=== PATIENT | female | born 1990 | race Caucasian/White ===

== ENCOUNTER 2016-03-25 14:08 | Emergency (ER) | payer MEDICAID ==
[~2016-03-25] VITALS: Ht 152.4 cm; Wt 78.5 kg
[~2016-03-25 14:08] MED LIST: HYDR-1421
[2016-03-25 15:30] VITALS: BP 115/87
== END 2016-03-25 17:35 | disposition home or self-care (01) ==
LOC: ER 14:16
DX: S83.91XA Sprain of unspecified site of right knee, initial encounter (principal); Z88.8 Allergy status to other drugs, medicaments and biological substances; X58.XXXA Exposure to other specified factors, initial encounter; Y93.89 Activity, other specified; Y99.9 Unspecified external cause status; Y92.89 Other specified places as the place of occurrence of the external cause
CPT/HCPCS: 73562

== ENCOUNTER 2021-10-23 10:15 | Emergency (ER) | payer MEDICAID ==
[~2021-10-23] VITALS: Ht 152.4 cm; Wt 76.3 kg
[2021-10-23 12:45] VITALS: BP 110/68
[2021-10-23] MEDS ORDERED: cefTRIAXone SOD 1,000 MG VL IM ONE (12:45)
[2021-10-23] MEDS ORDERED: AZIT500T66 PO (13:03)
[2021-10-23] MEDS ORDERED: LIDO2SOL23 MT (13:03)
== END 2021-10-23 13:08 | disposition home or self-care (01) ==
LOC: ER 10:44
DX: J03.90 Acute tonsillitis, unspecified (principal); Z90.49 Acquired absence of other specified parts of digestive tract
CPT/HCPCS: 96372; 99283; J0696

== ENCOUNTER 2024-07-28 11:05 | Inpatient (IN) | payer MEDICAID ==
[~2024-07-28] VITALS: Ht 157.5 cm; Wt 80.0 kg
[~2024-07-28 11:05] MED LIST changes: +AZIT500T66 PO; +LIDO2SOL26 MT
--- NOTE | 2024-07-28 11:12 | ED.PDOC ---
History of Present Illness HPI Comments 33-year-old female who comes in with chief complaint of abdominal pain and body pain since Monday. The patient was at [facility] with her family and then the symptoms began. There has been some fever and chills with a temperature of a 100.1 upon arrival. The patient is experiencing the vomiting as well as diarrhea since Monday. 911 was called and the patient was transported to our facility. There has been no dysuria. The patient was given Zofran 4 mg p.o. EN route. Time Seen by MD: 11:06 Primary Care Provider: LAWRENCE Reviewed Notes: Nurses Notes, Dean Of Girls Notes, Medications, Allergies (Allergies to iodine) Allergies: Coded Allergies: Iodine (Verified Allergy, Mild, 08/09/10) Home Meds Active Scripts Lidocaine HCl (Mouth-Throat) (Lidocaine HCl Viscous) 2 % Rhonda, 2 % MT TID, #100 ML Prov:BEAU WESLEY 10/23/21 Azithromycin (Azithromycin) 500 Mg Tab, 500 MG PO DAILY for 5 Days, #5 TAB Prov:BEAU WESLEY 10/23/21 Reported Medications Hydrocodone-Acetaminophen (Vicodin) 1 Tab Tab, PRN 03/19/12 Information Source: Patient, Emergency Med Personnel Mode of Arrival: EMS Severity: Moderate Timing: Days Duration: Since onset Prehospital treatment: Other (Zofran 4 mg ODT) Location: Generalized abdominal pain Associated signs and symptoms Fever, chills, diarrhea, vomiting Past Medical History PAST MEDICAL HISTORY: Asthma, High Lipids Surgical History: Appendectomy, Cholecystectomy, 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 History Family History Family History: No family hx of Lung leandro, Family hx of heart leandro Social History Smoker: Non-Smoker Alcohol: Occasionally Drugs: Denies Drug Use Lives In: Home Constitutional: reports: chills, fever, weakness; denies: diaphoresis, fatigue, malaise, sweats, others EENTM: denies: blurred vision, double vision, ear bleeding, ear discharge, ear drainage, ear pain, ear ringing, eye pain, eye redness, hearing loss, mouth pain, mouth swelling, nasal discharge, nose bleeding, nose congestion, nose pain, photophobia, tearing, throat pain, throat swelling, voice changes, others Respiratory: denies: cough, hemoptysis, orthopnea, SOB at rest, shortness of breath, SOB with excertion, stridor, wheezing, others Cardiovascular: denies: chest pain, dizzy spells, diaphoresis, Dyspnea on exertion, edema, irregular heart beat, left arm pain, lightheadedness, palpitations, PND, syncope, others Gastrointestinal: reports: abdominal pain, diarrhea, nausea, vomiting; denies: abdomen distended, blood streaked bowels, constipated, dysphagia, difficulty swallowing, hematemesis, melena, poor appetite, poor fluid intake, rectal bleeding, rectal pain, others Genitourinary: denies: abnormal vagina bleeding, burning, dyspareunia, dysuria, flank pain, frequency, hematuria, incontinence, pain, , vagina discharge, urgency, others Neurological: denies: dizziness, fainting, headache, left sided numbness, left sided weakness, numbness, paresthesia, pre-existing deficit, right sided numbness, right sided weakness, seizure, speech problems, tingling, tremors, weakness, others Musculoskeletal: denies: back pain, gout, joint pain, joint swelling, muscle pain, muscle stiffness, neck pain, others Integumetry: denies: bruises, change in color, change in hair/nails, dryness, laceration, lesions, lumps, rash, wounds, others Allergic/Immunocompromised: denies: Difficulty Healing, Frequent Infections, Hives, Itching, others Hematologic/Lymphatic: denies: anemia, blood clots, easy bleeding, easy bruis ing, swollen glands, others Endocrine: denies: excessive hunger, excessive sweating, excessive thirst, exc essive urination, flushing, intolerance to cold, intolerance to heat, unexplained weight gain, unexplained weight loss, others Psychiatric: denies: anxiety, bipolar disorder, depression, hopeless, panic disorder, schizophrenia, sleepless, suicidal, others Physical Exam General Appearance: Moderate Distress HEENT: Normal ENT Inspection, Pharynx Normal, TMs Normal Neck: Full Range of Motion, Non-Tender, Normal, Normal Inspection Respiratory: Chest Non-Tender, Lungs Clear, No Accessory Muscle Use, No Respiratory Distress, Normal Breath Sounds Cardiovascular: No Edema, No JVD, No Murmur, No Gallop, Normal Peripheral Puls es, Regular Rate/Rhythm Breast Exam: Deferred Gastrointestinal: Diffuse, No Organomegaly, No Pulsatile Mass, Normal Bowel Sounds, Soft, Tenderness Genitalia: Deferred Pelvic: Deferred Rectal: Deferred Extremities: No calf tenderness, Normal capillary refill, Normal inspection, Normal range of motion, Non-tender, No pedal edema Musculoskeletal : Apperance: Normal Neurologic: Alert, director of community center II-XII nml as Tested, No Motor Deficits, Normal Affect, Normal Mood, No Sensory Deficits Cerebellar Function: Normal Reflexes: Normal Skin: Dry, Normal Color, Warm Lymphatic: No Adenopathy Was a procedure done? Was a procedure done?: No Differential Dx Considerations may include: Generalized weakness, gastritis, diverticulitis, dehydration X-Ray, Labs, Meds, VS Vital Signs Date Time Temp Pulse Resp B/P (MAP) Pulse Ox O2 Delivery O2 Flow Rate FiO2 07/28/24 12:46 115 16 117/73 07/28/24 12:41 99.9 07/28/24 12:03 115 16 117/73 07/28/24 11:50 102.3 07/28/24 11:33 121 18 135/70 07/28/24 11:15 100.1 113 18 127/83 (98) 100 100.1 07/28/24 11:15 102.3 121 16 135/70 (91) 100 102.3 Lab Test 07/28/24 11:22 Range/Units White Blood Count 5.4 4.4-10.8 10^3/uL Red Blood Count 5.17 4.0-5.20 10^6/uL Hemoglobin 14.3 12.2-16.2 g/dL Hematocrit 42.2 36.0-46.0 % Mean Corpuscular Volume 81.5 80.0-100.0 fL Mean Corpuscular Hemoglobin 27.7 L 28.0-32.0 pg Mean Corpuscular Hemoglobin Concent 34.0 32.0-36.0 g/dL Red Cell Distribution Width 14.2 11.8-14.3 % Platelet Count 259 140-450 10^3/uL Mean Platelet Volume 8.0 6.9-10.8 fL Neutrophils (%) (Auto) 85.4 H 37.0-80.0 % Lymphocytes (%) (Auto) 2.6 L 10.0-50.0 % Monocytes (%) (Auto) 11.5 0.0-12.0 % Eosinophils (%) (Auto) 0.4 0.0-7.0 % Basophils (%) (Auto) 0.1 0.0-2.0 % Neutrophils # (Auto) 4.6 1.6-8.6 10 ^3/uL Lymphocytes # (Auto) 0.1 L 0.4-5.4 10 ^3/uL Monocytes # (Auto) 0.6 0-1.3 10 ^3/uL Eosinophils # (Auto) 0 0-0.8 10 ^3/uL Basophils # (Auto) 0 0-0.2 10 ^3/uL Nucleated Red Blood Cells 0.0 % Sodium Level 136 136-145 mmol/L Potassium Level 3.4 L 3.5-5.1 mmol/L Chloride Level 103 98-107 mmol/L Carbon Dioxide Level 20 20-31 mmol/L Anion Gap 13 5-15 Blood Urea Nitrogen < 5 L 9-23 mg/dL Creatinine 0.78 0.550-1.02 mg/dL Glomerular Filtration Rate Calc 102 >90 mL/min BUN/Creatinine Ratio 6.4 L 10.0-20.0 Serum Glucose 121 H 74-106 mg/dL Calcium Level 10.3 8.7-10.4 mg/dL Total Bilirubin 0.5 0.2-1.0 mg/dL Aspartate Amino Transferase (AST) < 8 L 13-40 U/L Alanine Aminotransferase (ALT) 13 7-40 U/L Alkaline Phosphatase 77 46-116 U/L Total Protein 7.8 5.7-8.2 g/dL Albumin 4.9 H 3.2-4.8 g/dL Lipase 41 12-53 U/L Beta HCG, Quantitative 0.5 L 1.5-4.2 mIU/mL Current Medications Medications (Trade) Dose Ordered Sig/Sapphire Route Start Time Stop Time Status Last Admin Sodium Chloride 1,000 ml @ 1,000 mls/hr Q1H ONCE IVB 07/28/24 11:15 07/28/24 12:14 DC 07/28/24 11:32 Morphine Sulfate 4 mg ONCE ONCE IV 07/28/24 11:15 07/28/24 11:16 DC 07/28/24 11:33 Prochlorperazine Edisylate (Compazine Inj) 10 mg ONCE ONCE IV 07/28/24 11:15 07/28/24 11:16 DC 07/28/24 11:33 Pantoprazole Sodium (Protonix) 40 mg ONCE ONCE IV 07/28/24 11:15 07/28/24 11:16 DC 07/28/24 11:33 Acetaminophen (Tylenol Tablet) 650 mg ONCE ONCE PO 07/28/24 11:45 07/28/24 11:46 DC 07/28/24 11:50 Morphine Sulfate 4 mg ONCE ONCE IV 07/28/24 12:45 07/28/24 12:46 DC 07/28/24 12:46 The patient's CBC is within normal limits The chemistry panel is within normal limits. The patient was given morphine 4 mg IV push for the pain The patient was given Protonix 40 mg as well as Compazine 10 mg IV push The patient was bolused with normal saline The patient is still having increased amount of symptoms so we are going to admit the patient to the hospitalist We did repeat a dose of morphine The beta quantitative hCG is negative The patient is being admitted with a diagnosis of intractable abdominal pain and vomiting Images Reviewed?: Images reviewed and evaluated by me Time of 1ST Reevaluation: 11:12 Reevaluation 1ST: Unchanged Patient Education/Counseling: Diagnosis, Treatment, Prognosis Family Education/Counseling: No Family Present Departure 1 Departure Time of Disposition: 14:26 Impression: Primary Impression: Intractable abdominal pain Additional Impression: Vomiting Qualified Codes: R11.14 - Bilious vomiting Disposition: 09 ADMITTED INPATIENT Admit to: Med Surg Condition: Fair Critical Care Note Critical Care Time?: No Stability Stability form required: Yes Unstable for transfer: ED Physician Assesment (Clinical assesment) Heart Score Heart Score: Heart Score Response (Comments) Value History N/A 0 EKG N/A 0 Age N/A 0 Risk Factors N/A 0 Troponin N/A 0 Total 0 TOÑA MUELLER MD July 28, 2024 11:12
[2024-07-28] MEDS: SODIUM CHLORIDE 0.9% 1,000 ML IVB ONE (11:32)
[2024-07-28] MEDS: MORPHINE SULFATE 4 MG/ML SYR/VIAL IV ONE ×2 (11:33→12:46)
[2024-07-28] MEDS: PANTOPRAZOLE 40 MG/10 ML VIAL INJ IV ONE (11:33)
[2024-07-28] MEDS: PROCHLORPERAZINE EDISYLATE 5 MG/ML 2ML VIAL IV ONE (11:33)
[2024-07-28 11:38] LABS: Basophils # (auto) 0 10 ^3/uL (0-0.2); Basophils % (auto) 0.1 % (0.0-2.0); Eosinophils # (auto) 0 10 ^3/uL (0-0.8); Eosinophils % (auto) 0.4 % (0.0-7.0); Hematocrit 42.2 % (36.0-46.0); Hemoglobin 14.3 g/dL (12.2-16.2); Lymphocytes # (auto) 0.1 10 ^3/uL (0.4-5.4); Lymphocytes % (auto) 2.6 % (10.0-50.0); Mean Corpuscular Hemoglobin 27.7 pg (28.0-32.0); Mean Corpuscular Volume 81.5 fL (80.0-100.0); Monocytes # (auto) 0.6 10 ^3/uL (0-1.3); Monocytes % (auto) 11.5 % (0.0-12.0); Neutrophils # (auto) 4.6 10 ^3/uL (1.6-8.6); Neutrophils % (auto) 85.4 % (37.0-80.0); Platelet Count (auto) 259 10^3/uL (140-450); Red Blood Cells 5.17 10^6/uL (4.0-5.20); Red Cell Distribution Width 14.2 % (11.8-14.3); White Blood Cell 5.4 10^3/uL (4.4-10.8)
[2024-07-28] MEDS: ACETAMINOPHEN 325 MG TAB PO ONE (11:50)
[2024-07-28 11:53] LABS: Alanine Aminotransferase 13 U/L (7-40); Alkaline Phosphatase 77 U/L (46-116); Anion Gap 13 (5-15); Bilirubin, Total 0.5 mg/dL (0.2-1.0); Calcium 10.3 mg/dL (8.7-10.4); Carbon Dioxide 20 mmol/L (20-31); Chloride 103 mmol/L (98-107); Total Protein 7.8 g/dL (5.7-8.2)
[2024-07-28 11:56] LABS: Albumin 4.9 g/dL (3.2-4.8); Aspartate Aminotransferase < 8 U/L (13-40); BUN/Creatinine Ratio 6.4 (10.0-20.0); Blood Urea Nitrogen < 5 mg/dL (9-23); Glucose 121 mg/dL (74-106); Potassium 3.4 mmol/L (3.5-5.1); Sodium 136 mmol/L (136-145)
[2024-07-28 12:08] LABS: Lipase 41 U/L (12-53)
--- NOTE | 2024-07-28 14:14 | DVH ---
CT CT AB PEL WO CON-NO ORAL OR IV INDICATION: pain EXAM DATE: 07/28/2024 01:41 PM COMPARISON: None RADIATION DOSE: CTDIvol: 8.34 mGy, DLP: 480.53 mGy*cm PROCEDURE: Helical CT images were obtained of the abdomen and pelvis without IV contrast Sagittal and coronal reconstructions are provided. ORAL CONTRAST: None. ADDITIONAL IMAGES / REFORMATS: None All C T scans at this medical facility are performed using dose modulation techniques as appropriate to a p erformed exam including the following: Automated exposure control was utilized; adjustment of the MA and/or KV according to patient size; and use of iterative reconstruction technique. FINDINGS: LUNG BASE: Normal. LIVER: Normal. GALLBLADDER AND BILIARY TREE: Shirlene clips. No intra- or extrahepatic biliary ductal dilation. PANCREAS: Normal. SPLEEN: Normal. BOWEL: Normal. Appendix not visualized. ADRENALS: Normal. KIDNEYS AND URETER: Normal. BLADDER: Normal. REPRODUCTIVE ORGANS: An IUD and tampon is visualized. LYMPH NODES:No lymphadenopathy. PERITONEUM: No ascites or free air. No other fluid collection. VESSELS: Normal. RETROPERITONEUM: Normal. ABDOMINAL WALL: Normal. BONES: Normal. IMPRESSION: No acute intraabdominal abnormality. Appendix not visualized. An IUD and tampon is visualized.
[2024-07-28] MEDS ORDERED: NITROGLYCERIN 0.4 MG SL TAB SL PRN (15:15)
[2024-07-28] MEDS ORDERED: HYDROcodone-ACET 5/325MG TAB PO PRN (15:15)
--- NOTE | 2024-07-28 15:20 | DVHHP2 ---
History of Present Illness History of Present Illness 33-year-old female with a history of asthma presents to emergency room for abdominal pain with associated nausea and vomiting and associated fevers. Patient is also reporting diarrhea patient reports being at [employer]. Review of Systems Constitutional: Yes: Fever, Chills Eyes: No: Pain, Vision change, Conjunctivae inflammation, Eyelid inflammation, Other, Redness Respiratory: No: Cough, Dry, Shortness of breath, SOB with excertion, Wheezing, Hemoptysis, Pleuritic Pain, Sputum, Wheezing, Other Cardiovascular: No: Chest Pain, Palpitations, Orthopnea, Paroxysmal Noc. Dyspnea, Edema, Lt Headedness, Other Gastrointestinal: Nausea, Vomiting Genitourinary: No Dysuria, No Frequency, No Incontinence, No Hematuria, No Retention, No Other Allergies: Coded Allergies: Iodine (Verified Allergy, Mild, 08/09/10) Medications Current Medications Medications Dose Ordered Sig/Sapphire Route Start Time Stop Time Status Last Admin Dose Admin Acetaminophen/ Hydrocodone Bitart 1 tab Q4HP PRN PO 07/28/24 15:15 UNV Enoxaparin Sodium 30 mg DAILY SC 07/29/24 10:00 UNV Acetaminophen 650 mg Q6HP PRN PO 07/28/24 15:15 UNV Nitroglycerin 0.4 mg Q5MINP PRN SL 07/28/24 15:15 UNV Ceftriaxone Sodium 50 ml @ 100 mls/hr DAILY@09 IV 07/29/24 09:00 UNV Metronidazole 100 ml @ 100 mls/hr Q8HR IV 07/28/24 22:00 UNV Sodium Chloride 1,000 ml @ 100 mls/hr Q10H IV 07/28/24 15:15 UNV Exam Vital Signs Vital Signs Date Time Temp Pulse Resp B/P (MAP) Pulse Ox O2 Delivery O2 Flow Rate FiO2 07/28/24 12:46 115 16 117/73 07/28/24 12:41 99.9 07/28/24 11:15 100 General Appearance: Alert, Oriented X3, Cooperative HEENT: Atraumatic Respiratory: Clear to auscultation, Normal air movement Cardiovascular: Regular rate, Normal S1, Normal S2, No murmurs Abdominal: Normal bowel sounds, Soft, No tenderness, No hepatospenomegaly Extremities: No clubbing Labs/Xrays Labs Test 07/28/24 11:22 Range/Units White Blood Count 5.4 4.4-10.8 10^3/uL Red Blood Count 5.17 4.0-5.20 10^6/uL Hemoglobin 14.3 12.2-16.2 g/dL Hematocrit 42.2 36.0-46.0 % Mean Corpuscular Volume 81.5 80.0-100.0 fL Mean Corpuscular Hemoglobin 27.7 L 28.0-32.0 pg Mean Corpuscular Hemoglobin Concent 34.0 32.0-36.0 g/dL Red Cell Distribution Width 14.2 11.8-14.3 % Platelet Count 259 140-450 10^3/uL Mean Platelet Volume 8.0 6.9-10.8 fL Neutrophils (%) (Auto) 85.4 H 37.0-80.0 % Lymphocytes (%) (Auto) 2.6 L 10.0-50.0 % Monocytes (%) (Auto) 11.5 0.0-12.0 % Eosinophils (%) (Auto) 0.4 0.0-7.0 % Basophils (%) (Auto) 0.1 0.0-2.0 % Neutrophils # (Auto) 4.6 1.6-8.6 10 ^3/uL Lymphocytes # (Auto) 0.1 L 0.4-5.4 10 ^3/uL Monocytes # (Auto) 0.6 0-1.3 10 ^3/uL Eosinophils # (Auto) 0 0-0.8 10 ^3/uL Basophils # (Auto) 0 0-0.2 10 ^3/uL Nucleated Red Blood Cells 0.0 % Sodium Level 136 136-145 mmol/L Potassium Level 3.4 L 3.5-5.1 mmol/L Chloride Level 103 98-107 mmol/L Carbon Dioxide Level 20 20-31 mmol/L Anion Gap 13 5-15 Blood Urea Nitrogen < 5 L 9-23 mg/dL Creatinine 0.78 0.550-1.02 mg/dL Glomerular Filtration Rate Calc 102 >90 mL/min BUN/Creatinine Ratio 6.4 L 10.0-20.0 Serum Glucose 121 H 74-106 mg/dL Calcium Level 10.3 8.7-10.4 mg/dL Total Bilirubin 0.5 0.2-1.0 mg/dL Aspartate Amino Transferase (AST) < 8 L 13-40 U/L Alanine Aminotransferase (ALT) 13 7-40 U/L Alkaline Phosphatase 77 46-116 U/L Total Protein 7.8 5.7-8.2 g/dL Albumin 4.9 H 3.2-4.8 g/dL Lipase 41 12-53 U/L Beta HCG, Quantitative 0.5 L 1.5-4.2 mIU/mL Assessment/Plan Assessment/Plan 1. sepsis from influenza A IV abx, blood cultures, IVF 2. chronic pain syndrome continue with [place] PRN 3. morbid obesity monitor 4. hypokalemia 5. intractable nausea vomiting 6. hyperlipemia Plan discussed with: Patient My Orders Orders - LENA BELL Procedure Category Date Status Time Admit ADMIT 07/28/24 Transmitted 15:11 Allergies AKIN 07/28/24 In Process 15:11 Hydrocodone-Acet PHA 07/28/24 Logged 5/325mg Tab ([place] 15:15 Condition: Fair AKIN 07/28/24 In Process 15:11 Enoxaparin Sodium PHA 07/29/24 Logged (Lovenox) 10:00 Acetaminophen Tablet PHA 07/28/24 Logged (Tylenol Tablet) 15:15 Clear Liq Diet DIET 07/28/24 Transmitted Dinner Nitroglycerin PHA 07/28/24 Logged Sublingual (Ntrostat 15:15 Stat Ekg For Chest AKIN 07/28/24 In Process Pain 15:11 Notify Md Of Changes AKIN 07/28/24 In Process From Base 15:11 Nut Feeder For [facility] 07/28/24 In Process 24 Hours 15:11 Emergency Dysrhythmia AKIN 07/28/24 In Process Protocol 15:11 Rhythm Strips Once AKIN 07/28/24 In Process Every Shift 15:11 Oxygen By Nasal RT 07/28/24 Transmitted Cannula 15:11 Potassium Chloride PHA 07/28/24 Logged (Potassium Chloride). 15:15 Blood Culture ERNESTINA 07/28/24 Logged 15:14 Lactic Acid W/ Reflex LAB 07/28/24 Logged Order 15:14 Ceftriaxone 1gm/50ml PHA 07/28/24 Logged D5w (Rocephin) 15:15 Ceftriaxone 1gm/50ml PHA 07/29/24 Logged D5w (Rocephin) 09:00 Metronidazole PHA 07/28/24 Logged 500mg/100ml (Flagyl 22:00 Metronidazole PHA 07/28/24 Logged 500mg/100ml (Flagyl 15:15 Sodium Chloride 0.9% PHA 07/28/24 Logged 15:15 Urine Bacterial ERNESTINA 07/28/24 Logged Culture 15:15 Communication Order ORDERS 07/28/24 Transmitted 15:15 Covid19 Antigen Awa LAB 07/28/24 Logged Rapid Influenza A&B LAB 07/28/24 Logged 15:16 Pregabalin Capsule PHA 07/28/24 Verified (Lyrica Capsule) 22:00 Date of Service: July 28, 2024 Billing Provider: JONE MCCAULEY MD Common Visit Codes: [id number] INP/OBS CARE (MOD) LENA BELL HOME SUPERVISOR July 28, 2024 15:20
[2024-07-28 15:35] VITALS: RESP 18; O2SAT 98
[2024-07-28] MEDS: metroNIDAZOLE 500MG/100ML 100 ML IV ONE (15:39)
[2024-07-28] MEDS: cefTRIAXone 1GM/50ML D5W 50 ML IV ONE (15:39)
[2024-07-28 16:08] LABS: COVID19 ANTIGEN SOFIA FIA NEGATIVE (NEGATIVE)
[2024-07-28 16:09] LABS: Rapid Influenza B Negative (Negative)
[2024-07-28 16:10] LABS: Rapid Influenza A Positive (Negative)
[2024-07-28 16:19] LABS: Urine Amorphous Crystal FEW /hpf (None Seen); Urine Bacteria FEW /hpf (None Seen); Urine Blood Negative /uL (Negative); Urine Clarity Turbid (Clear); Urine Color Yellow (Yellow); Urine Mucus FEW (None Seen); Urine Protein, UAD 1+ (Negative); Urine Specific Gravity 1.029 (1.001-1.035); Urine Squamous Epithelial Cell FEW /hpf (<5); Urine Urobilinogen Normal (Negative); Urine WBC 3 /HPF (0-5); Urine pH 5.5 (5.0-9.0)
[2024-07-28 16:49] LABS: Amphetamine Screen, Urine Neg (NEGATIVE); Barbiturate Scree,Urine Neg (NEGATIVE); Benzodiazephine Screen, Urine Neg (NEGATIVE); Cannabinoid Screen, Urine Neg (NEGATIVE); Cocaine Screen, Urine Neg (NEGATIVE); Opiate Scree,Urine Pos (NEGATIVE); Phencyclidine Screen, Urine Neg (NEGATIVE)
[2024-07-28] MEDS: SODIUM CHLORIDE 0.9% 1,000 ML IV SCH (18:00)
[2024-07-28] MEDS: POTASSIUM CHLORIDE 20 MEQ, LIDOCAINE 1% (LOCAL ANESTH.) 2 ML in SODIUM CHL 0.9% 100 ML IV ONE (18:25)
[2024-07-28 19:25] VITALS: RESP 18; O2SAT 98
[2024-07-28] MEDS: ONDANSETRON HCL 4 MG/2 ML VIAL IV PRN (21:23)
[2024-07-28] MEDS: HYDROcodone-ACET 10/325MG TAB PO PRN (21:23)
[2024-07-28] MEDS: ACETAMINOPHEN 325 MG TAB PO PRN (21:24)
[2024-07-28] MEDS: ATORVASTATIN 20 MG TAB PO SCH (21:49)
[2024-07-28] MEDS: OSELTAMIVIR 75 MG CAP PO SCH (21:49)
[2024-07-28] MEDS: PREGABALIN 25 MG CAP PO SCH (21:49)
[2024-07-28] MEDS ORDERED: metroNIDAZOLE 500MG/100ML 100 ML IV SCH (22:00)
[2024-07-29] MEDS: cefTRIAXone 1GM/50ML D5W 50 ML IV SCH (09:15)
[2024-07-29] MEDS: ENOXAPARIN SOD 40 MG/0.4 ML SYRINGE SC SCH (11:28)
[2024-07-29] MEDS: AZITHROMYCIN 500MG/ 250ML 250 ML IV SCH (11:39)
--- NOTE | 2024-07-29 14:03 | DVHPN2 ---
Progress Note - Dictate Date Seen: July 29, 2024 Medical Necessity Reason Pt with a Central, PICC or Fol: No vital signs Vital Sign Date Time Temp Pulse Resp B/P (MAP) Pulse Ox O2 Delivery O2 Flow Rate FiO2 07/29/24 13:11 97.8 77 22 109/78 (88) 98 97.8 07/28/24 19:25 Room Air* 0 21 Total Intake and Output 07/28/24 07/28/24 07/29/24 15:00 23:00 07:00 Intake Total 1000 ml Balance 1000 ml medications Current Medications Medications Dose Ordered Sig/Sapphire Route Start Time Stop Time Status Last Admin Dose Admin Acetaminophen/ Hydrocodone Bitart 1 tab Q4HP PRN PO 07/28/24 15:15 UNV Enoxaparin Sodium 40 mg DAILY SC 07/29/24 10:00 07/29/24 11:28 40 MG Acetaminophen 650 mg Q6HP PRN PO 07/28/24 15:15 07/29/24 09:28 650 MG Nitroglycerin 0.4 mg Q5MINP PRN SL 07/28/24 15:15 Ceftriaxone Sodium 50 ml @ 100 mls/hr DAILY@09 IV 07/29/24 09:00 07/29/24 09:15 100 MLS/HR Metronidazole 100 ml @ 100 mls/hr Q8HR IV 07/28/24 22:00 Cancel Sodium Chloride 1,000 ml @ 100 mls/hr Q10H IV 07/28/24 15:15 07/29/24 11:15 100 MLS/HR Pregabalin 100 mg BID PO 07/28/24 22:00 07/29/24 11:28 100 MG Acetaminophen/ Hydrocodone Bitart 1 tab Q4HP PRN PO 07/28/24 15:30 07/28/24 21:23 1 TAB Oseltamivir Phosphate 75 mg BID PO 07/28/24 22:00 08/02/24 21:59 07/29/24 11:28 75 MG Azithromycin 250 ml @ 125 mls/hr DAILY IV 07/29/24 10:00 07/29/24 11:39 125 MLS/HR Ondansetron HCl 4 mg Q4HPRN PRN IV 07/28/24 17:00 07/29/24 11:28 4 MG Atorvastatin Calcium 20 mg HS PO 07/28/24 22:00 07/28/24 21:49 20 MG objective General Appearance: alert, no distress HEENT: EOMI, PERRLA, normal external inspect of ears, no icterus, no nasal drainage Neck: no carotid bruit, no jugular venous distention (JVD), no lymphadenopathy Chest: normal thorax Respiratory: clear to auscultation, normal air movement Cardiovascular: regular rate and rhythm, no diastolic murmur, no jugular venous distention (JVD), no rub, no systolic murmur Abdominal: soft, no hepatomegaly, no mass, no splenomegaly, no tenderness Genitourinary: grossly normal external Musculoskeletal: no joint tenderness, no swelling Extremities: normal pulses, no calf tenderness, no clubbing, no cyanosis, no edema Skin: no bruising, no jaundice, no rash Neurological: alert, No focal deficit laboratory and microbiology Laboratory Tests 07/28/24 11:22 Test 07/28/24 11:22 Range/Units Serum Glucose 121 H 74-106 mg/dL Problem List 1. Sepsis from influenza A IV abx, blood cultures, IVF 2. Chronic pain syndrome Monitor, continue with [place] PRN 3. Morbid obesity Monitor 4. hypokalemia Monitor, daily labs 5. Intractable nausea vomiting Monitor 6. Hyperlipemia Monitor, daily labs Assessment/Plan Subjective: Patient is awake and alert. Objective: Patient is still having fever and joint pain. She states she still does not feel well and feels dehydrated. Patient also admitted for sepsis. Plan: Continue Tamiflu for influenza A. Continue IV fluids. Monitor vitals. Continue supportive measures. Plan discussed with: Patient, Other ESVIN CASTILLO NP July 29, 2024 14:03
[2024-07-29 14:22] LABS: Basophils # (auto) 0 10 ^3/uL (0-0.2); Basophils % (auto) 0.4 % (0.0-2.0); Eosinophils # (auto) 0 10 ^3/uL (0-0.8); Hemoglobin 12.5 g/dL (12.2-16.2); Lymphocytes # (auto) 0.4 10 ^3/uL (0.4-5.4); Lymphocytes % (auto) 14.5 % (10.0-50.0); Mean Corpuscular Hemoglobin 27.7 pg (28.0-32.0); Mean Corpuscular Hgb Conc. 33.8 g/dL (32.0-36.0); Mean Corpuscular Volume 81.7 fL (80.0-100.0); Monocytes # (auto) 0.4 10 ^3/uL (0-1.3); Monocytes % (auto) 14.3 % (0.0-12.0); Neutrophils # (auto) 1.9 10 ^3/uL (1.6-8.6); Neutrophils % (auto) 70.8 % (37.0-80.0); Nucleated Red Blood Cells % 0.1 %; Platelet Count (auto) 188 10^3/uL (140-450); Red Blood Cells 4.52 10^6/uL (4.0-5.20); Red Cell Distribution Width 14.5 % (11.8-14.3); White Blood Cell 2.7 10^3/uL (4.4-10.8)
[2024-07-29 14:34] LABS: Sodium 140 mmol/L (136-145)
[2024-07-29 14:35] LABS: Anion Gap 8 (5-15); Calcium 9.5 mg/dL (8.7-10.4); Carbon Dioxide 23 mmol/L (20-31); Chloride 109 mmol/L (98-107)
[2024-07-29 14:40] LABS: BUN/Creatinine Ratio 7.6 (10.0-20.0); Blood Urea Nitrogen < 5 mg/dL (9-23); Glucose 106 mg/dL (74-106)
[2024-07-29 19:45] VITALS: RESP 18; O2SAT 98
[2024-07-29 20:00] VITALS: TEMP 97.8
[2024-07-30 09:10] VITALS: PULSE 74; RESP 15; O2SAT 97
[2024-07-30] MEDS ORDERED: ZOFR4T PO (12:22)
[2024-07-30] MEDS ORDERED: TAMIFLU PO (12:22)
--- NOTE | 2024-07-30 12:24 | DVHDS2 ---
Discharge Summary Date of Admission July 28, 2024 at 15:11 Date of Discharge: July 30, 2024 Labs/Diagnostic Data: Laboratory Results Test 07/29/24 14:14 07/28/24 15:33 07/28/24 15:31 07/28/24 15:29 White Blood Count 2.7 10^3/uL (4.4-10.8) Red Blood Count 4.52 10^6/uL (4.0-5.20) Hemoglobin 12.5 g/dL (12.2-16.2) Hematocrit 37.0 % (36.0-46.0) Mean Corpuscular Volume 81.7 fL (80.0-100.0) Mean Corpuscular Hemoglobin 27.7 pg (28.0-32.0) Mean Corpuscular Hemoglobin Concent 33.8 g/dL (32.0-36.0) Red Cell Distribution Width 14.5 % (11.8-14.3) Platelet Count 188 10^3/uL (140-450) Mean Platelet Volume 7.8 fL (6.9-10.8) Neutrophils (%) (Auto) 70.8 % (37.0-80.0) Lymphocytes (%) (Auto) 14.5 % (10.0-50.0) Monocytes (%) (Auto) 14.3 % (0.0-12.0) Eosinophils (%) (Auto) 0.0 % (0.0-7.0) Basophils (%) (Auto) 0.4 % (0.0-2.0) Neutrophils # (Auto) 1.9 10 ^3/uL (1.6-8.6) Lymphocytes # (Auto) 0.4 10 ^3/uL (0.4-5.4) Monocytes # (Auto) 0.4 10 ^3/uL (0-1.3) Eosinophils # (Auto) 0 10 ^3/uL (0-0.8) Basophils # (Auto) 0 10 ^3/uL (0-0.2) Nucleated Red Blood Cells 0.1 % Sodium Level 140 mmol/L (136-145) Potassium Level 4.0 mmol/L (3.5-5.1) Chloride Level 109 mmol/L (98-107) Carbon Dioxide Level 23 mmol/L (20-31) Anion Gap 8 (5-15) Blood Urea Nitrogen < 5 mg/dL (9-23) Creatinine 0.66 mg/dL (0.550-1.02) Glomerular Filtration Rate Calc 117 mL/min (>90) BUN/Creatinine Ratio 7.6 (10.0-20.0) Serum Glucose 106 mg/dL (74-106) Calcium Level 9.5 mg/dL (8.7-10.4) Urine Color Yellow (Yellow) Urine Clarity Turbid (Clear) Urine pH 5.5 (5.0-9.0) Urine Specific [place] 1.029 (1.001-1.035) Urine Protein 1+ (Negative) Urine Ketones 1+ (Negative) Urine Blood Negative /uL (Negative) Urine Nitrite Negative (Negative) Urine Bilirubin Negative (Negative) Urine Urobilinogen Normal mg/dL (Negative) Urine Leukocyte Esterase Negative /uL (Negative) Urine RBC 2 /hpf (0 - 4) Urine Microscopic WBC 3 /HPF (0-5) Urine Squamous Epithelial Cells Few /hpf (<5) Urine Amorphous Crystals Few /hpf (None Seen) Urine Bacteria Few /hpf (None Seen) Urine Mucus Few (None Seen) Urine Glucose Normal mg/dL (Normal) Urine Test Negative (Negative) Urine Opiates Screen Pos (NEGATIVE) Urine Fentanyl Screen Neg (NEGATIVE) Urine Barbiturates Screen Neg (NEGATIVE) Urine Phencyclidine Screen Neg (NEGATIVE) Urine Amphetamines Screen Neg (NEGATIVE) Urine Benzodiazepines Screen Neg (NEGATIVE) Urine Cocaine Screen Neg (NEGATIVE) Urine Cannabinoids Screen Neg (NEGATIVE) Influenza Type A Antigen Positive (Negative) Influenza Type B Antigen Negative (Negative) SARS-CoV-2 Antigen (Rapid) Negative (NEGATIVE) Lactic Acid Level 1.3 mmol/L (0.4-2.0) Test 07/28/24 11:22 Total Bilirubin 0.5 mg/dL (0.2-1.0) Aspartate Amino Transferase (AST) < 8 U/L (13-40) Alanine Aminotransferase (ALT) 13 U/L (7-40) Alkaline Phosphatase 77 U/L (46-116) Total Protein 7.8 g/dL (5.7-8.2) Albumin 4.9 g/dL (3.2-4.8) Lipase 41 U/L (12-53) Beta HCG, Quantitative 0.5 mIU/mL (1.5-4.2) Other Laboratory Tests 07/29/24 14:14 Brief Hx & Hospital Course: 33-year-old female with a history of asthma presents to emergency room for abdominal pain with associated nausea and vomiting and associated fevers. Patient is also reporting diarrhea, while patient reports being at [employer]. While in the emergency department the patient was evaluated by the provider, As per provider: Labs, vital signs, and imagining monitored. Patient was admitted on July 28, 2024 for sepsis related to influenza A. Patient was started on antibiotics as well as IV fluids and Tamiflu. Patient was given breathing treatments. Patient was weaned to room air. Patient was no longer febrile. She was given a prescription for Tamiflu, and she was instructed to follow up with her PCP in one week. There were no complaints or new complaints upon discharge, all questions and concerns were answered. Patient was advised to return to the ER or call 911 if any headaches, dizziness, shortness of breath, chest pain, bleeding, fevers, or worsening of medical condition. Patient/Family was counseled about treatment plan, medications, possible side effects, patientverbalized understanding. All questions were answered to the best of my ability. The patient symptoms improved and they are okay to be DC. Condition at Discharge: Stable Final Diagnosis/Problems List Influenza A sepsis from influenza A chronic pain syndrome morbid obesity hypokalemia intractable nausea vomiting hyperlipemia Discharge Disposition: Home Discharge Instruct/Medications Diet: Regular Activity: No Restrictions, As Tolerated Follow Up/Referral: pcp 1 week Discharge Statement: "Patient was advised to return to the ER or call 911 if any headaches, dizziness, shortness of breath, chest pain, abdominal pain, bleeding, fevers, or worsening of medical condition. Patient was counseled about treatment plan, medications, possible side effects, patientverbalized understanding. All questions were answered to the best of my ability. This discharge took greater then 30 minutes in planning, reviewing documentation, counseling the patient, and discussing with other team members." ASSESSMENT ASSESSMENT Assessment ESVIN Amaro NP July 30, 2024 12:24
[2024-07-30 13:00] VITALS: BP 101/68; PULSE 78; RESP 15; O2SAT 97
== END 2024-07-30 14:15 | disposition home or self-care (01) | DRG 720 ==
LOC: EDBD 11:05 → ER 11:05 → OVERFLOW 15:11 → UNDODEPER 07-30 13:53 → OVERFLOW 07-30 14:15
PROVIDERS: ADMIT Nurse Practitioner Family; ATTEND Nurse Practitioner Family
DX: A41.89 Other specified sepsis (principal); E66.01 Morbid (severe) obesity due to excess calories; G89.4 Chronic pain syndrome; E87.6 Hypokalemia; E78.5 Hyperlipidemia, unspecified; J10.1 Influenza due to other identified influenza virus with other respiratory manifestations; Z20.822 Contact with and (suspected) exposure to COVID-19; J45.909 Unspecified asthma, uncomplicated; Z91.041 Radiographic dye allergy status; Z79.899 Other long term (current) drug therapy; Z79.891 Long term (current) use of opiate analgesic; Z79.1 Long term (current) use of non-steroidal anti-inflammatories (NSAID); Z90.49 Acquired absence of other specified parts of digestive tract; Z98.891 History of uterine scar from previous surgery; Z68.32 Body mass index [BMI] 32.0-32.9, adult
CPT/HCPCS: 36415; 74176; 80048; 80053; 80307; 81001; 81025; 83605; 83690; 84702; 85025; 87040; 87086; 87426; 87804; 96361; 96374; 96375; G0378; J2003; J2405; J2470; J3490